=== PATIENT | female | born 1985 | race Caucasian/White ===

== ENCOUNTER → 2018-04-02 09:37 | Outpatient (CLI) | payer OTHER, SELFPAY ==
[2018-04-10 20:55] LABS: HCG Quantitative /Beta subunit 1670.5 mIU/mL
== END ==
PROVIDERS: Family Provider Physician Assistant; PCP Physician Assistant; Visit Provider Obstetrics & Gynecology
DX: N91.2 Amenorrhea, unspecified (principal)
CPT/HCPCS: 36415; 84702

== ENCOUNTER → 2018-04-26 12:43 | Outpatient (CLI) | payer OTHER, SELFPAY ==
[2018-04-26 14:02] LABS: Bacteria Urine None Seen; WBC Urine None Seen (0-5/HPF)
[2018-04-26 14:20] LABS: Appearance Urine UA CLEAR; Bilirubin Urine UA NEGATIVE (NEGATIVE); Color Urine UA YELLOW; Glucose Urine UA NEGATIVE (Normal); Ketones Urine UA NEGATIVE (NEGATIVE); Leukocyte Esterase Urine UA NEGATIVE (NEGATIVE); Nitrite Urine UA Negative (Negative); Occult Blood Urine UA 1+ (Negative); Protein Urine UA NEGATIVE (Negative); Specific Gravity Urine UA 1.025 (1.000-1.035); Urobilinogen Urine UA 0.2 E.U./dL (0.2)
[2018-04-26 14:26] LABS: Add Manual Diff / Slide Review NO; Basophils Percent Auto 0.4 % (0-2); Eosinophils Percent Auto 0.6 % (2-4); Hematocrit 37.7 % (36-46); Hemoglobin 12.7 g/dL (12.0-16.0); Lymphocytes Percent Auto 17.2 % (25-40); Mean Corpuscular HGB Conc 33.7 % (30-36); Mean Corpuscular Hemoglobin 29.4 PG (26-34); Mean Corpuscular Volume 87.1 fL (80-100); Monocytes Percent Auto 6.5 % (3-14); Neutrophils Absolute Auto 7200 /uL (3000-5900); Neutrophils Percent Auto 75.3 % (50-75); Platelet Count 259 X10^3/uL (150-400); Red Blood Cell Count 4.32 X10^6/uL (4.0-5.2); Red Cell Distribution Width 13.5 % (11.6-14.8); White Blood Cell Count 9.5 X10^3/uL (4.5-11.0)
[2018-04-26 14:27] LABS: Culture Indicated Urine Cult Not Indicated; RBC Urine 0-1/HPF (0-5/HPF); Squamous Epithelial Cell Urine 0-1 /HPF
[2018-04-26 16:01] LABS: Hepatitis B Surface Antigen NEGATIVE s/c (NEGATIVE)
[2018-04-26 16:09] LABS: HIV 1 and 2 Antibody NEGATIVE (NEGATIVE); Hep C Virus Ab w/Reflex Quant NEGATIVE s/c (NEGATIVE)
[2018-04-30 14:16] LABS: HSV 2 IGG AB < 0.90 index (< 0.90)
[2018-05-03 08:23] LABS: Rapid Plasma Reagin NON-REACTIVE
== END ==
PROVIDERS: Family Provider Physician Assistant; PCP Physician Assistant; Visit Provider Obstetrics & Gynecology
DX: Z34.91 Encounter for supervision of normal pregnancy, unspecified, first trimester (principal)
CPT/HCPCS: 36415; 80055; 81001; 86695; 86696; 86703; 86787; 86803; 86850; 86900; 86901

== ENCOUNTER → 2018-04-26 13:54 | Outpatient (CLI) | payer OTHER, SELFPAY | PROVIDERS: Family Provider Physician Assistant; PCP Physician Assistant; Visit Provider Obstetrics & Gynecology | DX: Z34.91 Encounter for supervision of normal pregnancy, unspecified, first trimester (principal) ==

== ENCOUNTER → 2018-06-25 16:54 | Outpatient (CLI) | payer OTHER, SELFPAY ==
[2018-07-01 14:40] LABS: AFP, Serum 34.6 ng/mL; Calc Gestational Age 16.7; Cigarette Smoker N; Donated Egg NOT GIVEN; Donor Egg Age NOT GIVEN; Estriol, Free 1.04 ng/mL; Inhibin A, Dimeric 133 pg/mL; Maternal Ethnicity NOT GIVEN; Maternal Weight 190 lbs; Number of Fetuses NOT GIVEN; Previous Pregnancy Down Syndro NOT GIVEN; hCG, MoM 1.09; hCG, Serum 28.4 IU/mL
== END ==
PROVIDERS: PCP Physician Assistant; Visit Provider Obstetrics & Gynecology
DX: Z34.82 Encounter for supervision of other normal pregnancy, second trimester (principal)
CPT/HCPCS: 36415; 82105; 82677; 84702; 86336

== ENCOUNTER → 2018-07-18 07:00 | Outpatient (CLI) | payer OTHER, SELFPAY ==
--- NOTE | 2018-07-18 07:02 | DI.US.S_ITS ---
PROCEDURE: US OB >= 14 WEEKS FETUS INDICATIONS: ANATOMY OUTSIDE/PRIOR DATING DATA: Last menstrual period (LMP): Unknown. LMP-based estimated date of delivery (CULLEN): N./A.. First dating scan (date and location): 04/26/18. Estimated date of delivery (CULLEN) from first dating scan: 12/06/18. TECHNIQUE: Real-time scanning was performed of the fetus, with image documentation and biometric measurements. Endovaginal scanning: No. COMPARISON: [facility], , OB >= 14 WEEKS FETUS, 06/25/2018, 16:45. FINDINGS: General: A single living intrauterine gestation is present. Presentation: Vertex. Placenta: Placental position is posterior, without previa. Amniotic fluid index: 12.6 cm, normal range is 5-24 cm. heart rate: 144 beats per minute. Maternal cervical canal: 3.2 cm long. Normal lower limit is 2.5 cm. biometrics: Biparietal diameter: 20 weeks 1 day Head circumference: 20 weeks 4 days Abdominal circumference: 20 weeks 6 days Femur length: 20 weeks 3 days Estimated gestational age from initial scan: 19 weeks 6 days Composite gestational age from present scan: 20 weeks 4 days Estimated weight and percentile: 369 g; 87th percentile Measurement variability for biometric dating: +/- 7 days from 14 weeks to 15 weeks 6 days gestation, +/- 10 days from 16 weeks to 21 weeks 6 days gestation, +/- 2 weeks from 22 weeks to 27 weeks 6 days gestation, +/- 3 weeks for 28 weeks gestation or later. weight reference: 4500 g or EFW >90/95% is considered macrosomia or large for gestational age. EFW <10% is small for gestational age. EFW 5% or less is considered intra-uterine growth restriction. Anatomic survey: Neuro: Ventricles are non-dilated at less than 10 mm. Cisterna magna is normal at 3-11 mm. Cerebellum is normal in size and morphology. Nuchal skin fold: Normal at less than 6 mm between 14-21 weeks gestational age. Face: Nose and lips, facial profile are normal. Spine: No evidence for spina bifida. Heart: 4-chambered heart is present, with normal ventricular outflow tracts. Diaphragm: Diaphragm is intact. Stomach: Left-sided stomach is present. Kidneys: No hydronephrosis. Normal is less than 5 mm in 2nd trimester, less than 7 mm in 3rd trimester. Cord: 3-vessel cord has orthotopic insertion. Bladder: Normal in size. Extremities: All 4 extremities identified. IMPRESSION: 1. Interval growth upper limits of normal and normal anatomic survey. Dictated by: Ken Vila [facility] Interpreted: Raffy Adam MD on 07/18/2018 at 10:34 Approved by: Raffy Adam M.D. on 07/18/2018 at 14:50
== END ==
PROVIDERS: Family Provider Internal Medicine; PCP Internal Medicine; Visit Provider Obstetrics & Gynecology
DX: Z34.82 Encounter for supervision of other normal pregnancy, second trimester (principal); Z3A.20 20 weeks gestation of pregnancy
CPT/HCPCS: 76811

== ENCOUNTER → 2018-08-29 15:29 | Outpatient (CLI) | payer OTHER, SELFPAY ==
[2018-08-29 17:05] LABS: Hematocrit 35.5 % (36-46); Hemoglobin 11.8 g/dL (12.0-16.0)
[2018-08-29 17:19] LABS: GTT (PREG) 1 Hour PP 50gm Dose 109 mg/dL (76-139)
== END ==
PROVIDERS: Family Provider Internal Medicine; PCP Internal Medicine; Visit Provider Obstetrics & Gynecology
DX: Z34.82 Encounter for supervision of other normal pregnancy, second trimester (principal)
CPT/HCPCS: 36415; 82950; 85014; 85018

== ENCOUNTER → 2018-09-13 15:44 | Outpatient (CLI) | payer OTHER, SELFPAY | PROVIDERS: Family Provider Internal Medicine; PCP Internal Medicine; Visit Provider Obstetrics & Gynecology | DX: R39.9 Unspecified symptoms and signs involving the genitourinary system (principal) | CPT/HCPCS: 87086 ==

== ENCOUNTER → 2018-11-06 08:41 | Outpatient (CLI) | payer OTHER, SELFPAY ==
[2018-11-07 15:11] LABS: Strep Grp B PCR NEG for Grp B Strep
== END ==
PROVIDERS: Family Provider Internal Medicine; PCP Internal Medicine; Visit Provider Obstetrics & Gynecology
DX: Z34.83 Encounter for supervision of other normal pregnancy, third trimester (principal)
CPT/HCPCS: 87653

== ENCOUNTER 2018-11-25 07:36 | Inpatient (IN) | payer OTHER, SELFPAY ==
--- NOTE | 2018-11-25 08:26 | PM.OBHP.1 ---
OB HPI Date/Time Date of admission: 11/25/18 Date Patient Seen: 11/25/18 Time Patient Seen: 08:00 History of Present Condition Chief complaint: OBS : 2 Para: 1 Estimated Date of Delivery: 12/05/18 Estimated Gestational Age (weeks): 38w4d Narrative: Bhavana Benites is a 32 year old at 38w4d who presented with SROM. The pt reports having a gush of clear fluid around 6:30am. She had started having contractions earlier in the evening, that have been getting stronger but not increased frequency. She has been having light pink spotting since earlier last night. Indications Other reason(s) for admission: SROM History of Present care: good care and initiated at week # (12) Dating criteria: based on 1st trimester US only Ultrasounds: normal 1st trimester US and normal mid trimester US Obstetrical complications: none Medical complications: none Preadmission Labs Blood type: A (+) positive -: Antibody screen: negative, GBS status: negative, HBsAG: negative, HIV: negative, HSV 1: positive, HSV 2: negative and RPR/VDLR: negative -: Rubella: immune and Varicella: immune HCT: 35.5 HCAB: negative Quad screen: Normal Urine: Normal 1 hr GTT: 109 Prior (ies) History: 07/20/17 at 40wks, 7lb4oz male Evaluation Evaluation Baseline heart rate: 150 Variability: Moderate (11-25) monitor accelerations: Absent monitor decelerations: Absent Contraction Frequency (minutes): 6 Uterine Contraction Intensity: Moderate Category of Tracing: I PFSH Family History Father Hypertension Heavy drinker Mother BRCA1 genetic carrier Hypertension Alcohol drinker Hyperthyroidism History of thyroidectomy Sister Hyperthyroidism History of thyroidectomy Grandfather Hyperthyroidism History of thyroidectomy Grandmother Hx of CABG Congenital heart disease Smoker Alcohol drinker Myocardial infarction Grandfather Alzheimer's disease Grandmother Dementia Social History Smoking Status: Never smoker Meds Home Medications Medication Instructions Recorded Confirmed Type VIT/IRON FUMARATE/FA 1 ea PO DAILY #0 11/24/16 11/25/18 History (MYNATAL-Z CAPTAB) ondansetron 4 mg disintegrating 4 mg PO Q6H PRN #20 tab 04/19/18 11/25/18 Rx tablet metoclopramide 10 mg tablet 10 mg PO QID #30 tab 05/24/18 11/25/18 Rx hydroxyzine HCl 25 mg tablet 25 mg PO TID-QID PRN #20 tab 11/13/18 11/25/18 Rx Breast Pump - Double Electric 1 ea DAILY 11/25/18 11/25/18 History Allergies Allergy/AdvReac Type Severity Reaction Status Date / Time No Known Drug Allergies Allergy Verified 04/29/18 08:47 Exam Narrative Exam Narrative: Gen: NAD, sitting comfortably in bed, appears well Neck: no LAD CV: RRR, no murmurs Resp: clear to auscultation bilaterally Abd: soft, nontender, nondistended, gravid Ext: trace edema Objective Labs Result Diagrams: 11/25/18 08:25 Assessment and Plan (1) SROM (spontaneous rupture of membranes): Current visit: Yes Status: Acute (2) 38 weeks gestation of : Current visit: Yes Status: Acute Plan: Plan: 32yo at 38w4d who presented in early labor with SROM. Fluid reportedly clear. without complications. GBS negative, Rh positive. - Expectant management, anticipate - Epidural for pain control when desired - FHT reassuring - GBS negative, no prophylaxis indicated - Will allow pt to ambulate for several hours, then re-evaluate contraction pattern. If without regular contractions, plan to start pitocin. Will not check cervix yet to minimize cervical exams.
[2018-11-25 08:34] LABS: Add Manual Diff / Slide Review NO; Basophils Absolute Auto 100 /uL (0-100); Basophils Percent Auto 0.5 % (0-2); Eosinophils Absolute Auto 0 /uL (0-450); Eosinophils Percent Auto 0.2 % (2-4); Hematocrit 37.6 % (36-46); Hemoglobin 12.2 g/dL (12.0-16.0); Lymphocytes Absolute Auto 1700 /uL (1100-4500); Mean Corpuscular HGB Conc 32.5 % (30-36); Mean Corpuscular Hemoglobin 28.3 PG (26-34); Mean Corpuscular Volume 87.1 fL (80-100); Monocytes Absolute Auto 800 /uL (0-900); Monocytes Percent Auto 5.9 % (3-14); Neutrophils Absolute Auto 10400 /uL (1500-7000); Neutrophils Percent Auto 80.4 % (50-75); Platelet Count 216 X10^3/uL (150-400); Red Blood Cell Count 4.32 X10^6/uL (4.0-5.2); Red Cell Distribution Width 13.8 % (11.6-14.8); White Blood Cell Count 12.9 X10^3/uL (4.5-11.0)
[2018-11-25 08:41] VITALS: BP 115/63
[2018-11-25] MEDS: LACTATED RINGERS 1,000 ML 100 ML IV ×2 (11:09→11:58)
[2018-11-25] MEDS: OXYTOCIN 10 UNIT/ML VIAL IM (13:15)
--- NOTE | 2018-11-25 14:44 | PM.OBPRVD ---
Delivery date: 11/25/18 Intrapartal events: None Cervical ripening method: none Induction method: none Delivery monitor: external FHT Route of delivery: Episiotomy description: None L&D Laceration Description: None Estimated blood loss (mL): 200 Anesthesia type: General Complications: None Narrative: PROCEDURE: at 38w4d presented with SROM and was admitted to Labor and Delivery. The patient progressed through the 1st stage over 6 hours. Pain was controlled with an epidural. The patient progressed through the 2nd stage over 45 minutes and delivered a viable male with APGARs 8/9 at 13:05 via uncomplicated . The cord was clamped and cut after it stopped pulsating. The perineum and vagina were inspected with no lacerations. PREPROCEDURE DIAGNOSIS: Intrauterine at 38w4d GBS negative RH positive POSTPROCEDURE DIAGNOSIS: Intrauterine at 38w4d, delivered Same as preprocedure Spontaneous vaginal delivery ROM APPEARANCE: Clear BABY A WEIGHT: [id number] BABY A NUCHAL CORD: No BABY A CORD GASES OBTAINED: No PLACENTA DELIVERY TIME: 13:10 PLACENTA APPEARANCE: Intact [place] Baby 1: gender: Male Presentation: vertex position: Right Occiput Anterior Placenta delivery description: Spontaneous cord vessel description: 3 Vessels score (1 min): 8 score (5 min): 9 Plan for aftercare: Normal care support
--- NOTE | 2018-11-25 14:50 | P.PCNOB_ITS ---
Delivery date: 11/25/18 Intrapartal events: None Cervical ripening method: none Induction method: none Delivery monitor: external FHT Route of delivery: Episiotomy description: None L&D Laceration Description: None Estimated blood loss (mL): 200 Anesthesia type: General Complications: None Narrative: PROCEDURE: at 38w4d presented with SROM and was admitted to Labor and Delivery. The patient progressed through the 1st stage over 6 hours. Pain was controlled with an epidural. The patient progressed through the 2nd stage over 45 minutes and delivered a viable male with APGARs 8/9 at 13: 05 via uncomplicated . The cord was clamped and cut after it stopped pulsating. The perineum and vagina were inspected with no lacerations. PREPROCEDURE DIAGNOSIS: Intrauterine at 38w4d GBS negative RH positive POSTPROCEDURE DIAGNOSIS: Intrauterine at 38w4d, delivered Same as preprocedure Spontaneous vaginal delivery ROM APPEARANCE: Clear BABY A WEIGHT: [id number] BABY A NUCHAL CORD: No BABY A CORD GASES OBTAINED: No PLACENTA DELIVERY TIME: 13:10 PLACENTA APPEARANCE: Intact Baby 1: Infant gender: Male Presentation: vertex position: Right Occiput Anterior Placenta delivery description: Spontaneous cord vessel description: 3 Vessels score (1 min): 8 score (5 min): 9 Plan for aftercare: Normal care support
[2018-11-25] MEDS: IBUPROFEN 600 MG TABLET PO ×2 (15:17→21:11)
[2018-11-25] MEDS: LANOLIN OINT 7 GM 1 APPLIC TOP (19:59)
[2018-11-25] MEDS: DERMOPLAST SPRAY 20% 60 ML 1 SPRAY TOP (19:59)
[2018-11-25 21:11] VITALS: TEMP 36.7
[2018-11-26 04:10] VITALS: TEMP 36.6
[2018-11-26] MEDS: IBUPROFEN 600 MG TABLET PO ×2 (04:10→10:02)
[2018-11-26] MEDS: DOCUSATE 250 MG CAPSULE PO (10:02)
[2018-11-26] MEDS: PRENATAL VIT,CALC/IRON/FOLIC 1 TABLET 1 TAB PO (10:02)
--- NOTE | 2018-11-26 13:06 | PM.DS.1 ---
History of Present Illness Date Patient Seen: 11/26/18 Time Patient Seen: 13:06 Chief complaint: labor & delivery Narrative: Patient is a 32-year-old 2 para 2 day # 1 status post spontaneous vaginal delivery going well. Bleeding tapering. Pain well controlled with ibuprofen. Discharge Providers Date of admission: 11/25/18 07:36 Primary care physician: ANGIE Dalton Consults: 11/25/18 08:24 Consult to Anesthesiology Urgent Comment: Consulting Provider: Sylvie Cross Reason for consultation: epidural for pain control Has provider been notified: Yes 11/25/18 15:13 Consult to Health Psychologist Routine Comment: Discharge provider: Isis Cruz MD Discharge Date: 11/26/18 Summary Discharge Diagnosis: 38 weeks gestation Spontaneous vaginal delivery Epidural analgesia Spontaneous rupture of membranes Hospital Course: Patient is a 32-year-old 2 para 2 who presented on 11/24/2017 with spontaneous rupture of membranes. She progressed into active labor and had a spontaneous vaginal delivery without complication after epidural analgesia. Her course was unremarkable. She was discharged home on post day # 1. Status at Discharge Functional status at discharge: independent ambulation Overall status at discharge: patient is progressing back to baseline Time Spent with Patient Less than 30 minutes Exam Vital Signs (past 8 hours): Generally: Patient is sitting up in bed, nursing infant, no acute distress Fundus: Firm at U -1 Extremities: Negative Homans, no edema Objective Labs Result Diagrams: 11/25/18 08:25 Discharge Plan Discharge Plan Patient Disposition: Home Discharge Med Rec/Prescriptions Prescriptions: No Action VIT/IRON FUMARATE/FA (MYNATAL-Z CAPTAB) tablet 1 ea PO DAILY Qty: 0 RF: 0 ondansetron [Zofran ODT] 4 mg tablet,disintegrating 4 mg PO Q6H PRN (Reason: nausea and vomiting) Qty: 20 RF: 3 metoclopramide HCl 10 mg tablet 10 mg PO QID Qty: 30 RF: 3 hydroxyzine HCl 25 mg tablet 25 mg PO TID-QID PRN (Reason: anxiety ) Qty: 20 RF: 0 Breast Pump - Double Electric kit 1 ea DAILY RF: 0 Follow up/Referrals: Isis Cruz MD [Physician] - 6 Weeks Provider Discharge Instructions Diet: Diet as Tolerated Activity: No intercourse Skin/Wound/Dressing Care Report to your healthcare provider any signs of infection, such as:: chills, fever, increased pain and unusual drainage Visit Report/Discharge Packet Instructions: DI for Labor and Delivery, Vaginal Discharge Data Primary Care Provider: Bonnie Gonzalez Attending Provider: Isis Cruz Admjuaquin Date/Time: 11/25/18 07:36
--- NOTE | 2018-11-26 13:10 | P.DS_ITS ---
History of Present Illness Date Patient Seen: 11/26/18 Time Patient Seen: 13:06 Chief complaint: labor & delivery Narrative: Patient is a 32-year-old 2 para 2 day # 1 status post spontaneous vaginal delivery going well. Bleeding tapering. Pain well controlled with ibuprofen. Discharge Providers Date of admission: 11/25/18 07:36 Primary care physician: ANGIE Dalton Consults: 11/25/18 08:24 Consult to Anesthesiology Urgent Comment: Consulting Provider: Sylvie Cross Reason for consultation: epidural for pain control Has provider been notified: Yes 11/25/18 15:13 Consult to [employer]iler Routine Comment: Discharge provider: Isis Cruz MD Discharge Date: 11/26/18 Summary Discharge Diagnosis: 38 weeks gestation Spontaneous vaginal delivery Epidural analgesia Spontaneous rupture of membranes Hospital Course: Patient is a 32-year-old 2 para 2 who presented on with spontaneous rupture of membranes. She progressed into active labor and had a spontaneous vaginal delivery without complication after epidural analgesia. Her course was unremarkable. She was discharged home on post day # 1. Status at Discharge Functional status at discharge: independent ambulation Overall status at discharge: patient is progressing back to baseline Time Spent with Patient Less than 30 minutes Exam Vital Signs (past 8 hours): Generally: Patient is sitting up in bed, nursing , no acute distress Fundus: Firm at U -1 Extremities: Negative Homans, no edema Objective Labs Result Diagrams: 11/25/18 08:25 Discharge Plan Discharge Plan Patient Disposition: Home Discharge Med Rec/Prescriptions Prescriptions: No Action VIT/IRON FUMARATE/FA (MYNATAL-Z CAPTAB) tablet 1 ea PO DAILY Qty: 0 RF: 0 ondansetron [Zofran ODT] 4 mg tablet,disintegrating 4 mg PO Q6H PRN (Reason: nausea and vomiting) Qty: 20 RF: 3 metoclopramide HCl 10 mg tablet 10 mg PO QID Qty: 30 RF: 3 hydroxyzine HCl 25 mg tablet 25 mg PO TID-QID PRN (Reason: anxiety ) Qty: 20 RF: 0 Breast Pump - Double Electric kit 1 ea DAILY RF: 0 Follow up/Referrals: Isis Cruz MD [Physician] - 6 Weeks Provider Discharge Instructions Diet: Diet as Tolerated Activity: No intercourse Skin/Wound/Dressing Care Report to your healthcare provider any signs of infection, such as:: chills, fever, increased pain and unusual drainage Visit Report/Discharge Packet Instructions: DI for Labor and Delivery, Vaginal Discharge Data Primary Care Provider: Bonnie Gonzalez Attending Provider: Isis Cruz Admjuaquin Date/Time: 11/25/18 07:36
[2018-11-26 15:54] LABS: Urine N gonorrhoeae NOT DETECTED
[2018-11-26 15:55] LABS: Urine Chlamydia NOT DETECTED
== END 2018-11-26 13:30 | disposition home or self-care (01) | DRG 807 ==
PROVIDERS: Family Medicine; Admitting Provider Obstetrics & Gynecology; Family Provider Internal Medicine; PCP Internal Medicine; Visit Provider Obstetrics & Gynecology
DX: O80 Encounter for full-term uncomplicated delivery (principal); Z37.0 Single live birth; Z3A.38 38 weeks gestation of pregnancy
CPT/HCPCS: 01967; 59050; 59400; 59409; 84112; 85025; 86850; 86900; 86901; 87491; 87591; G0379; J2590

== ENCOUNTER → 2019-02-10 09:05 | Outpatient (CLI) | payer OTHER, SELFPAY | PROVIDERS: Family Provider Internal Medicine; PCP Internal Medicine; Visit Provider Physician Assistant | DX: J02.9 Acute pharyngitis, unspecified (principal) | CPT/HCPCS: 87070; 87077; 87147 ==

== ENCOUNTER → 2020-06-22 09:15 | Outpatient (CLI) | payer OTHER, SELFPAY ==
[2020-06-22 14:34] LABS: Urine N gonorrhoeae NOT DETECTED
[2020-06-22 14:35] LABS: Urine Chlamydia NOT DETECTED
== END ==
PROVIDERS: Family Provider Internal Medicine; PCP Internal Medicine; Visit Provider Obstetrics & Gynecology
DX: Z34.81 Encounter for supervision of other normal pregnancy, first trimester (principal); Z11.3 Encounter for screening for infections with a predominantly sexual mode of transmission; Z3A.08 8 weeks gestation of pregnancy
CPT/HCPCS: 87491; 87591

== ENCOUNTER → 2020-07-07 09:07 | Outpatient (CLI) | payer OTHER, SELFPAY ==
[2020-07-07 10:11] LABS: Add Manual Diff / Slide Review NO; Basophils Absolute Auto 0 /uL (0-100); Basophils Percent Auto 0.2 % (0-2); Eosinophils Absolute Auto 0 /uL (0-450); Eosinophils Percent Auto 0.5 % (2-4); Hematocrit 39.9 % (36-46); Hemoglobin 13.4 g/dL (12.0-16.0); Lymphocytes Absolute Auto 1500 /uL (1100-4500); Lymphocytes Percent Auto 19.7 % (25-40); Mean Corpuscular HGB Conc 33.6 % (30-36); Mean Corpuscular Hemoglobin 29.1 PG (26-34); Mean Corpuscular Volume 86.5 fL (80-100); Monocytes Absolute Auto 400 /uL (0-900); Monocytes Percent Auto 5.3 % (3-14); Neutrophils Absolute Auto 5800 /uL (1500-7000); Neutrophils Percent Auto 74.3 % (50-75); Platelet Count 253 X10^3/uL (150-400); Red Blood Cell Count 4.61 X10^6/uL (4.0-5.2); Red Cell Distribution Width 13.5 % (11.6-14.8); White Blood Cell Count 7.8 X10^3/uL (4.5-11.0)
[2020-07-07 10:53] LABS: Hepatitis B Surface Antigen NEGATIVE s/c (NEGATIVE); Rubella Antibody IgG 73.8 IU/mL (>15)
[2020-07-07 11:09] LABS: HIV 1 & 2 Ab/Ag 4th Gen Combo NEGATIVE (NEGATIVE); Hep C Virus Ab w/Reflex Quant NEGATIVE s/c (NEGATIVE)
[2020-07-07 11:33] LABS: Appearance Urine UA CLEAR; Bilirubin Urine UA NEGATIVE (NEGATIVE); Color Urine UA YELLOW; Glucose Urine UA NEGATIVE (Negative); Ketones Urine UA TRACE (NEGATIVE); Leukocyte Esterase Urine UA NEGATIVE (NEGATIVE); Nitrite Urine UA NEGATIVE (Negative); Occult Blood Urine UA 2+ (Negative); Protein Urine UA 1+ (Negative); Specific Gravity Urine UA >=1.030 (1.000-1.035); Urobilinogen Urine UA 0.2 E.U./dL (0.2)
[2020-07-07 11:39] LABS: pH Urine UA 5.5 (4.5-8.0)
[2020-07-07 12:05] LABS: Bacteria Urine Moderate (10-30); Mucus Urine 2+ (Negative); RBC Urine 1-5/HPF (0-5/HPF); Squamous Epithelial Cell Urine 1-5 /HPF (0-5/HPF); WBC Urine 0-1/HPF (0-5/HPF)
[2020-07-08 07:18] LABS: RPR Screen Non Reactive (Non Reactive)
[2020-07-08 10:48] LABS: Varicella IgG Antibody 1468 index (Immune >165)
== END ==
PROVIDERS: Family Provider Internal Medicine; PCP Internal Medicine; Referring Provider Obstetrics & Gynecology; Visit Provider Obstetrics & Gynecology
DX: Z34.91 Encounter for supervision of normal pregnancy, unspecified, first trimester (principal)
CPT/HCPCS: 36415; 80055; 81003; 81015; 81420; 86787; 86803; 86850; 86900; 86901; 87086; 87389

== ENCOUNTER → 2020-08-25 14:48 | Outpatient (CLI) | payer OTHER, SELFPAY ==
[2020-08-28 19:42] LABS: AFP Value 34.2 ng/mL (.); Gest Age on Col Date 17.3 weeks (.); Insulin Dep Diabetes No (.); OSBR Risk 1IN 10000 (.); Results Report (.); Test Results *Screen Negative* (.)
== END ==
PROVIDERS: Family Provider Internal Medicine; PCP Internal Medicine; Referring Provider Obstetrics & Gynecology; Visit Provider Obstetrics & Gynecology
DX: Z34.82 Encounter for supervision of other normal pregnancy, second trimester (principal); Z3A.16 16 weeks gestation of pregnancy
CPT/HCPCS: 36415; 82105

== ENCOUNTER → 2020-09-17 09:08 | Outpatient (CLI) | payer OTHER, SELFPAY ==
--- NOTE | 2020-09-17 09:09 | DI.US.S_ITS ---
PROCEDURE: US OB >= 14 WEEKS FETUS INDICATIONS: ANATOMY SCAN OUTSIDE/PRIOR DATING DATA: Last menstrual period (LMP): 04/26/2020. LMP-based estimated date of delivery (CULLEN): 01/31/2021 . First dating scan (date and location): 06/22/2020 . Estimated date of delivery (CULLEN) from first dating scan: 02/01/2021 . TECHNIQUE: Real-time scanning was performed of the fetus, with image documentation and biometric measurements. Endovaginal scanning: No COMPARISON: [facility], , OB <= 14 WEEKS FETUS, 07/27/2020, 9:01. [facility], , OB >= 14 WEEKS FETUS, 07/18/2018, 7:15. FINDINGS: General: A single living intrauterine gestation is present. Presentation: Breech. Placenta: Placental position is anterior , without previa. Amniotic fluid index: 13.1 cm, normal range is 5-24 cm. heart rate: 157 beats per minute. Maternal cervical canal: 3.5 cm long. Normal lower limit is 2.5 cm. biometrics: Biparietal diameter: 19 weeks 4 days Head circumference: 19 weeks 6 days Abdominal circumference: 19 weeks 6 days Femur length: 19 weeks 6 days Estimated gestational age from initial scan: 20 weeks 3 days Composite gestational age from present scan: 19 weeks 6 days Estimated weight and percentile: 317 g; 18th percentile Measurement variability for biometric dating: +/- 7 days from 14 weeks to 15 weeks 6 days gestation, +/- 10 days from 16 weeks to 21 weeks 6 days gestation, +/- 2 weeks from 22 weeks to 27 weeks 6 days gestation, +/- 3 weeks for 28 weeks gestation or later. weight reference: 4500 g or EFW >90/95% is considered macrosomia or large for gestational age. EFW <10% is small for gestational age. EFW 5% or less is considered intra-uterine growth restriction. Anatomic survey: Neuro: Ventricles are non-dilated at less than 10 mm. Cisterna magna is normal at 3-11 mm. Cerebellum is normal in size and morphology. Nuchal skin fold: Normal at less than 6 mm between 14-21 weeks gestational age. Face: Nose and lips, facial profile are normal. Spine: No evidence for spina bifida. Heart: Suboptimally visualized. Diaphragm: Diaphragm is intact. Stomach: Left-sided stomach is present. Kidneys: No hydronephrosis. Normal is less than 5 mm in 2nd trimester, less than 7 mm in 3rd trimester. Cord: 3-vessel cord has orthotopic insertion. Bladder: Normal in size. Extremities: All 4 extremities identified. IMPRESSION: 1. Single living IUP redemonstrated and interval growth is normal. 2. heart suboptimally visualized; otherwise normal anatomic survey. Dictated by: Ken Vila [facility] Interpreted: Alfredo Ortiz MD on 09/17/2020 at 10:57 Approved by: Alfredo Ortiz M.D. on 09/17/2020 at 11:39
== END ==
PROVIDERS: Family Provider Internal Medicine; PCP Internal Medicine; Referring Provider Internal Medicine; Visit Provider Obstetrics & Gynecology
DX: Z34.82 Encounter for supervision of other normal pregnancy, second trimester (principal); Z3A.19 19 weeks gestation of pregnancy
CPT/HCPCS: 76811

== ENCOUNTER → 2020-10-26 15:20 | Outpatient (CLI) | payer OTHER, SELFPAY ==
[2020-10-26 17:09] LABS: Hematocrit 33.9 % (36-46); Hemoglobin 11.2 g/dL (12.0-16.0)
[2020-10-26 17:19] LABS: GTT (PREG) 1 Hour PP 50gm Dose 137 mg/dL (76-139)
== END ==
PROVIDERS: Family Provider Internal Medicine; PCP Internal Medicine; Referring Provider Obstetrics & Gynecology; Visit Provider Obstetrics & Gynecology
DX: Z34.82 Encounter for supervision of other normal pregnancy, second trimester (principal); Z3A.26 26 weeks gestation of pregnancy
CPT/HCPCS: 36415; 82950; 85014; 85018

== ENCOUNTER → 2020-12-28 11:44 | Outpatient (CLI) | payer OTHER, SELFPAY ==
[2020-12-29 08:13] LABS: Strep Grp B PCR NEG for Grp B Strep
== END ==
PROVIDERS: Family Provider Internal Medicine; PCP Internal Medicine; Visit Provider Obstetrics & Gynecology
DX: Z34.83 Encounter for supervision of other normal pregnancy, third trimester (principal); Z3A.35 35 weeks gestation of pregnancy
CPT/HCPCS: 87653

== ENCOUNTER 2021-01-31 07:00 | Inpatient (IN) | payer OTHER, SELFPAY ==
[2021-01-31 08:15] LABS: Add Manual Diff / Slide Review NO; Basophils Absolute Auto 0 /uL (0-100); Basophils Percent Auto 0.5 % (0-2); Eosinophils Absolute Auto 0 /uL (0-450); Eosinophils Percent Auto 0.5 % (2-4); Hematocrit 36.8 % (36-46); Hemoglobin 12.2 g/dL (12.0-16.0); Lymphocytes Absolute Auto 1600 /uL (1100-4500); Lymphocytes Percent Auto 16.7 % (25-40); Mean Corpuscular HGB Conc 33.1 % (30-36); Mean Corpuscular Hemoglobin 28.7 PG (26-34); Mean Corpuscular Volume 86.8 fL (80-100); Monocytes Absolute Auto 600 /uL (0-900); Monocytes Percent Auto 5.9 % (3-14); Neutrophils Absolute Auto 7300 /uL (1500-7000); Neutrophils Percent Auto 76.4 % (50-75); Platelet Count 236 X10^3/uL (150-400); Red Blood Cell Count 4.23 X10^6/uL (4.0-5.2); Red Cell Distribution Width 14.7 % (11.6-14.8); White Blood Cell Count 9.6 X10^3/uL (4.5-11.0)
[2021-01-31] MEDS: LACTATED RINGERS 1,000 ML 100 ML IV ×2 (08:23→13:22)
[2021-01-31] MEDS: OXYTOCIN PREMIX 30 UNIT/500 ML PLAST..BAG IV (08:23)
[2021-01-31 08:27] VITALS: BP 131/84
[2021-01-31 09:13] LABS: COVID19 - ADMIT (NP swab/PCR) Negative (Negative)
[2021-01-31] MEDS: FENT 2MCG/ML BUPIV 0.125% EPI 200 MCG/100 ML PLAST..BAG 12 MCG EPIDURAL (13:22)
--- NOTE | 2021-01-31 17:03 | PM.OBHP.1 ---
OB HPI Date/Time Date of admission: 01/31/21 Date Patient Seen: 01/31/21 Time Patient Seen: 07:40 History of Present Condition Chief complaint: EVALUATION OF LABOR/INDUCTION : 4 Para: 2 Estimated Date of Delivery: 01/31/21 Estimated Gestational Age (weeks): 40 Narrative: Bhavana Benites is a 35 year old female 4 para 2 who presents at 40 weeks gestation for induction of labor due to advanced maternal age. Indications Indication for induction OB: other (AMA) History of Present care: good care, initiated at week # (8), number of visits (12) and pounds weight gain (13) Dating criteria: LMP confirmed by 1st trimester US Ultrasounds: normal 1st trimester US and normal mid trimester US Obstetrical complications: none Medical complications: none Preadmission Labs Blood type: A (+) positive -: Antibody screen: negative, GBS status: negative, HBsAG: negative, HIV: negative and RPR/VDLR: negative -: Chlamydia screen: not detected and Gonorrhea screen: not detected -: Rubella: immune and Varicella: immune HCT: 36.8 HCAB: negative PAP: Normal Cell-free DNA: Normal female, AFP normal Urine: Negative 1 hr GTT: 137 Prior (ies) History: 2 Evaluation Evaluation Baseline heart rate: 135 Variability: Moderate (11-25) monitor accelerations: Present monitor decelerations: Absent Status: Category l Cervical dilation (cm): 3 Cervical effacement (%): 90 station: 0 Laboratory results: Laboratory Tests 01/31/21 01/31/21 01/31/21 07:45 07:45 07:45 WBC 9.6 RBC 4.23 Hgb 12.2 Hct 36.8 MCV 86.8 MCH 28.7 MCHC 33.1 RDW 14.7 Plt Count 236 Neut % (Auto) 76.4 H Lymph % (Auto) 16.7 L [place] % (Auto) 5.9 Eos % (Auto) 0.5 L Baso % (Auto) 0.5 Neut # (Auto) 7300 H Lymph # (Auto) 1600 [place] # (Auto) 600 Eos # (Auto) 0 Baso # (Auto) 0 SARS-CoV-2 (PCR) Negative Blood Type A Positive Antibody Screen Negative [facility] Medical History (Updated 07/27/20 @ 09:03 by Isis Cruz MD) Advanced maternal age during AMA (advanced maternal age) multigravida 35+ Anxiety HPV (human papilloma virus) infection Surgical History (Updated 06/15/20 @ 09:19 by Sandee Harris, FLASH) H/O wisdom tooth extraction History of dilatation and curettage (~2004) Family History (Updated 06/15/20 @ 08:50 by Sandee Harris RN) Father Hypertension Heavy drinker Mother BRCA1 genetic carrier Hypertension Alcohol drinker Hyperthyroidism History of thyroidectomy Breast cancer Brother Hyperthyroidism History of thyroidectomy Grandfather Hyperthyroidism History of thyroidectomy Cancer Breast cancer Grandmother Hx of CABG Congenital heart disease Smoker Alcohol drinker Myocardial infarction Grandfather Alzheimer's disease Grandmother Dementia Social History marital status: number of children: 2 pets and animals: Yes (X 2 Dogs and X 2 Cats : and aware) education level: vocational (Cosmetology ) occupational status: employed current occupational exposures/hazards: Yes Previous occupational history: Hairdresser hilaria/zoroastrian: [employer] special hilaria needs: No Smoking Status: Never smoker second hand exposure: No alcohol intake: former (pre- : wine per day ) substance use type: does not use Meds Home Medications and Allergies Home Medications Medication Instructions Recorded Confirmed Type VIT/IRON FUMARATE/FA 1 ea PO DAILY #0 11/24/16 01/31/21 History (ROD-Gunnar CAPTAB) ondansetron 4 mg disintegrating 4 mg PO Q6H PRN #20 tab 08/12/20 01/31/21 Rx tablet citalopram 10 mg tablet See Rx Instructions .ROUTE 11/29/20 01/31/21 Rx .COMPLEX #90 tab Allergies Allergy/AdvReac Type Severity Reaction Status Date / Time No Known Drug Allergies Allergy Verified 01/27/21 14:11 Exam Vital Signs (past 8 hours): Generally: No acute distress Lungs: Clear to auscultation bilaterally Cardiovascular: Regular rate and rhythm Fundal height: 40 cm Estimated weight: 8 lb Extremities: Trace edema, 1+ DTRs Objective Labs Result Diagrams: 01/31/21 07:45 Labs: Laboratory Results - last 24 hr 01/31/21 01/31/21 01/31/21 07:45 07:45 07:45 WBC 9.6 RBC 4.23 Hgb 12.2 Hct 36.8 MCV 86.8 MCH 28.7 MCHC 33.1 RDW 14.7 Plt Count 236 Neut % (Auto) 76.4 H Lymph % (Auto) 16.7 L [place] % (Auto) 5.9 Eos % (Auto) 0.5 L Baso % (Auto) 0.5 Neut # (Auto) 7300 H Lymph # (Auto) 1600 [place] # (Auto) 600 Eos # (Auto) 0 Baso # (Auto) 0 SARS-CoV-2 (PCR) Negative Blood Type A Positive Antibody Screen Negative Assessment and Plan Assessment and Plan Assessment and Plan narrative: Assessment: 35-year-old 4 para 2 at 40 weeks gestation for Pitocin induction of labor Plan: Pitocin per protocol 2 Epidural as necessary Artificial rupture of membranes when able Expected management to spontaneous vaginal delivery Time Spent with Patient Total time spent with greater than 50% in coordination of care (as documented) at patient's floor/unit and/or counseling patient:: 15-24 minutes
--- NOTE | 2021-01-31 17:10 | PM.OBPNLAB ---
Date/Time Date Patient Seen: 01/31/21 Time Patient Seen: 11:00 Pain Control Pain control: tolerating well Pelvic Exam Dilation (cm): 3 Effacement (%): 90 station: 0 Amniotic membrane status: Intact Contractions Pitocin rate (mU/min): 9 Contraction frequency (min): 3 Contraction duration (min): 1 Contraction pattern: Regular Contraction intensity: Moderate Status status: Category l Heart Rate Baseline: 140 Monitor Accelerations: Present Monitor Decelerations: Absent Monitor Variability: Moderate Assessment and Plan Assessment: induction ongoing Plan: other (Artificial rupture membranes with clear amniotic fluid)
--- NOTE | 2021-01-31 17:11 | PM.OBPNLAB ---
Date/Time Date Patient Seen: 01/31/21 Time Patient Seen: 14:00 Pain Control Pain control: epidural Pelvic Exam Dilation (cm): 3 Effacement (%): 90 station: 0 Amniotic membrane status: Intact Contractions Pitocin rate (mU/min): 12 Contraction frequency (min): 3 Contraction pattern: Regular Contraction intensity: Moderate Status status: Category l Heart Rate Baseline: 135 Monitor Accelerations: Present Monitor Decelerations: Absent Monitor Variability: Moderate Assessment and Plan Assessment: induction ongoing Plan: continuous present management Comments: Expected management to spontaneous vaginal delivery
--- NOTE | 2021-01-31 17:12 | PM.OBPRVD ---
Events: Labor Induction Labor & Delivery Delivery date: 01/31/21 Cervical ripening method: none Induction method: per pitocin protocol Delivery augmentation: rupture of membranes Delivery monitor: external FHT and external uterine Route of delivery: Episiotomy description: None L&D Laceration Description: None Estimated blood loss (mL): 100 Anesthesia Type: Epidural Narrative: Patient complete and pushed with 2 contractions. At 1626, a live female delivered spontaneously in the DIANNA presentation. There was loose nuchal cord which was reduced on the perineum. The remainder of the body delivered without difficulty and was placed on mom's abdomen. After the cord stopped pulsing, the cord was double clamped and cut. Pitocin was given in the IV fluids. Cord bloods were obtained. The placenta delivered intact with a three-vessel cord at 4:33 p.m.. The fundus was massaged to firm. No lacerations noted. Estimated blood loss 100 cc. Apgars 8 at 1 minute and 9 at 5 minutes. . Epidural analgesia. Mom and stable to recovery. Baby 1: gender: Female Presentation: vertex Position: Left Occiput Anterior Placenta delivery description: Spontaneous Cord Vessel Description: 3 Vessels, Nuchal Cord, Loose and Reduced score (1 min): 8 score (5 min): 9 Plan for aftercare: Routine care
[2021-01-31] MEDS: IBUPROFEN 600 MG TABLET PO (19:36)
[2021-01-31] MEDS: CITALOPRAM 10 MG TABLET PO (21:05)
[2021-02-01] MEDS: IBUPROFEN 600 MG TABLET PO ×2 (02:46→08:49)
[2021-02-01 08:49] VITALS: TEMP 36.7
[2021-02-01] MEDS: PRENATAL VIT,CALC/IRON/FOLIC 1 TABLET 1 TAB PO (08:49)
[2021-02-01 12:45] VITALS: BP 131/64; PULSE 67; TEMP 36.7
== END 2021-02-01 14:17 | disposition home or self-care (01) | DRG 807 ==
PROVIDERS: Admitting Provider Obstetrics & Gynecology; Family Provider Internal Medicine; PCP Internal Medicine; Referring Provider Obstetrics & Gynecology; Visit Provider Obstetrics & Gynecology
DX: O48.0 Post-term pregnancy (principal); Z37.0 Single live birth; Z3A.40 40 weeks gestation of pregnancy; O69.81X0 Labor and delivery complicated by cord around neck, without compression, not applicable or unspecified; Z20.822 Contact with and (suspected) exposure to COVID-19
CPT/HCPCS: 01967; 36415; 59050; 59400; 85025; 86850; 86900; 86901; 87635; G0379; J2590

== ENCOUNTER → 2021-05-04 16:27 | Outpatient (CLI) | payer OTHER, SELFPAY ==
[2021-05-04 17:37] LABS: T4 Total Thyroxine 6.78 ug/dL (5.5-11.0)
[2021-05-04 17:51] LABS: Thyroid Stimulating Hormone 1.41 uIU/mL (0.47-4.68)
== END ==
PROVIDERS: Family Provider Internal Medicine; PCP Internal Medicine; Referring Provider Obstetrics & Gynecology; Visit Provider Obstetrics & Gynecology
DX: R63.5 Abnormal weight gain (principal); Z83.49 Family history of other endocrine, nutritional and metabolic diseases
CPT/HCPCS: 36415; 84436; 84443

== ENCOUNTER → 2024-04-18 06:44 | Outpatient (CLI) | payer OTHER, SELFPAY ==
--- NOTE | 2024-04-18 06:45 | DI.US.S_ITS ---
PROCEDURE: US PELVIC COMPLETE INDICATIONS: Unspecified dyspareunia TECHNIQUE: Real-time scanning was performed of the pelvic organs, with image documentation. Additional endovaginal scanning was necessary due to incomplete visualization of the adnexal and endometrial structures by transabdominal scanning. COMPARISON: None. FINDINGS: Uterus: Uterus is anteverted and normal in size at 7.4 x 4.6 x 6.3 cm. The myometrium is homogeneous. The endometrium is not well seen secondary to intrauterine device, which appears appropriately positioned. Ovaries: The right ovary measures 1.4 x 0.9 x 1.8 cm, with a calculated ovarian volume of 1.2 cc. The left ovary measures 1.3 x 1.6 x 1.2 cm, with a calculated ovarian volume of 1.2 cc. The ovaries have a normal sonographic appearance. Less than 12 follicles can be seen in each ovary. No adnexal masses are seen. Other: No pathologic free abdominal or pelvic fluid. IMPRESSION: Intrauterine device in place. The uterus and ovaries are otherwise normal in appearance. We strive to produce accurate, complete, and clear reports of imaging services. To assist us in improving patient care, this report was composed using standard report templates and voice recognition software. Therefore, it may contain abnormal punctuation, insertions and/or omissions. Occasional wrong-word or sound-alike substitutions may occur. Though we review the report and make efforts to correct it, we do recommend that the report be read carefully in proper context to recognize any text inaccuracies. Dictated by: Samson Zavaleta M.D. on 04/18/2024 at 8:56 Approved by: Samson Zavaleta M.D. on 04/18/2024 at 8:57
== END ==
LOC: US 06:45
PROVIDERS: Family Provider Internal Medicine; PCP Internal Medicine; Referring Provider Internal Medicine; Visit Provider Internal Medicine
DX: N94.10 Unspecified dyspareunia (principal); Z97.5 Presence of (intrauterine) contraceptive device
CPT/HCPCS: 76830; 76856; 93975

== ENCOUNTER → 2025-01-02 15:05 | Outpatient (ROUT) | payer SELFPAY ==
[2025-01-02 15:54] LABS: Influenza A - CEPHEID Flu A NEGATIVE (NEGATIVE); Influenza B - CEPHEID Flu B NEGATIVE (NEGATIVE); Respiratory Syncytial Virus Negative (Negative)
[2025-01-02 15:56] LABS: COVID-19 CEPHEID 4-PLEX PCR Negative (Negative)
== END ==
PROVIDERS: Family Provider Internal Medicine; PCP Internal Medicine; Visit Provider Registered Nurse
DX: R05.1 Acute cough (principal)
CPT/HCPCS: 0241U